=== PATIENT | male | born 1990 | race Caucasian/White ===

== ENCOUNTER 2021-11-18 18:11 | Emergency (ER) | payer OTHER ==
[2021-11-18 18:51] LABS: HEMOGLOBIN 14.7 gm/dl (14.0-17.5); RED BLOOD COUNT 4.83 M/UL (4.20-5.50); WHITE BLOOD COUNT 12.5 K/UL (4.5-11.0)
[2021-11-18 19:19] LABS: BUN/CREATININE RATIO 17 (0-10)
[2021-11-18] MEDS ORDERED: HYDROCODON-ACE1 EAC2 PO (20:56)
[2021-11-18] MEDS ORDERED: IBUPROFEN600 MG PO (21:03)
[2021-11-18] MEDS ORDERED: NORFLEX 100 MG100 MG PO (21:03)
== END 2021-11-18 21:24 | disposition home or self-care (01) ==
LOC: ER1 18:11
PROVIDERS: Physician Assistant Medical
DX: S22.42XA Multiple fractures of ribs, left side, initial encounter for closed fracture (principal); S20.412A Abrasion of left back wall of thorax, initial encounter; K21.9 Gastro-esophageal reflux disease without esophagitis; W01.0XXA Fall on same level from slipping, tripping and stumbling without subsequent striking against object, initial encounter; Y92.89 Other specified places as the place of occurrence of the external cause; Y99.0 Civilian activity done for income or pay
CPT/HCPCS: 71260; 80053; 85025; 96374; 96375; 96376; 99284; J1885; J2270; J2405; Q9967

== ENCOUNTER → 2022-04-21 | Outpatient (CLI) | payer OTHER ==
[~2022-04-21] MED LIST: HYDROCODON-ACE1 EAC2 PO; IBUPROFEN600 MG PO; NORFLEX 100 MG100 MG PO
== END ==
LOC: KOH-I 14:10
DX: M25.572 Pain in left ankle and joints of left foot (principal); M79.672 Pain in left foot
CPT/HCPCS: 73610; 73630